=== PATIENT | male | born 1975 ===

== ENCOUNTER 2024-01-12 04:25 | Day surgery (SDC) | payer OTHER ==
[2024-01-05 11:36] VITALS: BMI 22.2
[2024-01-12] MEDS ORDERED: BUPIVACAINE HCL/PF 0.25% (2.5MG/ML) 10 ML VIAL ONE (11:16)
[2024-01-12 11:44] VITALS: RESP 18
[2024-01-12] MEDS ORDERED: CEFAZOLIN SODIUM 2 GM in DEXTROSE 5%-WATER 100 ML IVPB ONE (12:00)
[2024-01-12] MEDS ORDERED: ROCURONIUM BROMIDE 50 MG/5 ML SYRINGE ONE (13:14)
[2024-01-12] MEDS ORDERED: PROPOFOL 20 ML ONE (13:14)
[2024-01-12] MEDS ORDERED: HYDROmorphone HCl 2 MG/ML VIAL ONE (13:14)
[2024-01-12] MEDS ORDERED: MIDAZOLAM HCL 2 MG/2 ML SINGLE DOSE VIAL ONE (13:15)
[2024-01-12] MEDS ORDERED: ONDANSETRON 4 MG/2 ML VIAL ONE (13:15)
[2024-01-12] MEDS ORDERED: DEXAMETHASONE SOD PHOSPHATE 4 MG/1 ML VIAL ONE (13:15)
[2024-01-12] MEDS ORDERED: LIDOCAINE HCL/PF 2% SDV 5ML VIAL ONE (13:15)
[2024-01-12] MEDS ORDERED: SEVOFLURANE 250 ML BTL ONE (13:16)
[2024-01-12] MEDS ORDERED: SUGAMMADEX SODIUM 200 MG/2 ML VIAL ONE (13:18)
[2024-01-12] MEDS ORDERED: oxyCODONE HCL 5 MG TABLET PO PRN ×2 (13:21)
[2024-01-12] MEDS ORDERED: ONDANSETRON 4 MG/2 ML VIAL IVPUSH PRN (13:21)
[2024-01-12] MEDS ORDERED: LACTATED RINGERS SOLUTION 1,000 ML IV SCH (13:30)
[2024-01-12] MEDS ORDERED: ceFAZolin SODIUM 1 GM VIAL ONE (13:37)
[2024-01-12] MEDS: ceFAZolin SODIUM 1 GM VIAL IVPB ONE (13:38)
[2024-01-12] MEDS: BUPIVACAINE HCL/PF 0.25% (2.5MG/ML) 10 ML VIAL IJ ONE (13:54)
[2024-01-12 16:25] VITALS: PULSE 68
[2024-01-12] MEDS ORDERED: IBUPROFEN 600 MG TABLET (FP) PO ONE ×2 (17:48→18:25)
[2024-01-12] MEDS: IBUPROFEN 600 MG TABLET (FP) PO ONE (17:50)
[2024-01-12 18:07] VITALS: BP 119/74; TEMP 97.5
[2024-01-12] MEDS ORDERED: ACETAMINOPHEN 1000 MG/100 ML BAG IVPB ONE (18:25)
== END 2024-01-12 18:10 | disposition home or self-care (01) ==
LOC: JASU-SURG 04:25 → EDBD 12:00 → JASU-SURG 18:10
PROVIDERS: ATTEND Surgery
PROC: 8E0W4CZ Robotic Assisted Procedure of Trunk Region, Percutaneous Endoscopic Approach (ICD-10-PCS; 2024-01-12)
PROC: 0WUF4JZ Supplement Abdominal Wall with Synthetic Substitute, Percutaneous Endoscopic Approach (ICD-10-PCS; principal; 2024-01-12 12:00)
DX: K42.9 Umbilical hernia without obstruction or gangrene (principal)
CPT/HCPCS: 49591; S2900; 86850; 86900; 86901; 94760; C1781